=== PATIENT | male | born 1960 | race Caucasian/White ===

== ENCOUNTER → 2018-07-27 | Outpatient (CLI) | payer BC ==
--- NOTE | 2018-07-27 15:22 | RADIOLOGY REPORT (SQ) ---
EXAM DESCRIPTION: CT RT LOWER EXTREMITY WITHOUT COMPLETED DATE/TIME: 07/27/2018 10:43 am REASON FOR STUDY: (M25.561)PAIN IN RIGHT KNEE M25.561 PAIN IN RIGHT KNEE COMPARISON: None. TECHNIQUE: CT scan of the right knee performed without intravenous or oral contrast. Images reviewe d with soft tissue and bone windows. Reconstructed coronal and sagittal MPR images reviewed. All im ages stored on PACS. All CT scanners at this facility use dose modulation, iterative reconstruction, and/or weight based d osing when appropriate to reduce radiation dose to as low as reasonably achievable (ALARA). [facility]: Dose Right [facility]: CareDose [facility]: Dose Right [facility]: Teradose 4D [facility]: [employer] RADIATION DOSE: 4.6 mGy. LIMITATIONS: No plain films for comparison. There is streak artifact from metallic hardware at the knee FINDINGS: [place] bone density is grossly normal. Patient has a total knee replacement with patellar resurfacing. Normal alignment of the hardware. N o gross lucency around the hardware worrisome for loosening. Periarticular soft tissues are unremarkable IMPRESSION: Post right total knee replacement in good alignment. TECHNICAL DOCUMENTATION: JOB ID: [id number] Quality ID # [id number]: Final reports with documentation of one or more dose reduction techniques (e.g., Au tomated exposure control, adjustment of the mA and/or kV according to patient size, use of iterative reconstruction technique) 2010 [employer]- All Rights Reserved Reading location - IP/workstation name: [email or web address]
== END ==
LOC: RAD 10:20
PROVIDERS: ATTEND Orthopaedic Surgery Sports Medicine
DX: M25.561 Pain in right knee (principal); Z96.651 Presence of right artificial knee joint